=== PATIENT | female | born 1955 | race Caucasian/White ===

== ENCOUNTER → 2017-06-30 | Outpatient (CLI) | payer BC ==
[~2017-06-30] MED LIST: CEPH500C PO; DULO60CA6 PO; LEVOTHYROXINE; MECL-124 PO; PRD20T PO
--- NOTE | 2017-06-30 20:09 | Diagnostic Imaging Report ---
Digital mammogram bilateral screening with tomosynthesis. This study was compared to the prior exams of 06/26/2016, 08/28/2014, and 02/17/2012. At this time, there are no current complaints. The current study was also evaluated with a Computer Aided Detection (CAD) system. The fibroglandular tissue in both breasts is heterogeneously dense. This does limit the sensitivity of this exam. When compared to the prior study, there does not appear to have been any significant change. There is no primary or secondary sign of malignancy noted. The 3D tomographic views also fail to show any sign of malignancy. IMPRESSION: There is no evidence of malignancy. ACR BI-RADS Category 1: Negative. Result letter will be mailed to the patient. Note: At least 10% of breast cancer is not imaged by mammography. Dictated by: Dictated on workstation # [id number]
== END ==
LOC: RAD 09:07
PROVIDERS: ATTEND Nurse Practitioner Family
DX: Z12.31 Encounter for screening mammogram for malignant neoplasm of breast (principal)
CPT/HCPCS: 77067

== ENCOUNTER → 2017-08-31 | Outpatient (CLI) | payer BC ==
--- NOTE | 2017-08-31 11:05 | Diagnostic Imaging Report ---
EXAMINATION: Three views of the lumbar spine. INDICATION: Back pain. FINDINGS: There is straightening of the lordotic curvature of the lumbar spine. There is right convexity scoliotic curvature noted, however. The vertebral body heights are preserved. The disc heights are also preserved. No significant osteophyte formation. The paraspinal soft tissues appear unremarkable. Mild sclerotic degenerative changes at the SI joints are seen. IMPRESSION: Right convexity scoliosis. Straightening of the lordotic curvature may relate to muscle spasm. Dictated by: Dictated on workstation # [id number]
== END ==
LOC: RAD 10:28
DX: M41.26 Other idiopathic scoliosis, lumbar region (principal)
CPT/HCPCS: 72100

== ENCOUNTER 2017-10-13 08:34 | Emergency (ER) | payer BC ==
[~2017-10-13] VITALS: Ht 157.5 cm; Wt 59.0 kg
--- OUTSIDE RECORDS SUMMARY | 2017-10-13 08:41 | XMS REPORT | Continuity of Care Document ---
Demographics Preferred Language Unknown Marital Status Unknown Roman Catholic Affiliation Unknown Race Unknown Ethnic Group Unknown Author Author [facility] Address Unknown Phone Unavailable Allergies Active Description Code Type Severity Reaction Onset Reported/Identified Relationship to Patient Clinical Status Yes No Known Drug Allergies [id number] Drug Allergy Unknown N/ A 08/09/2012 Medications Problems Date Dx Coded Attending Type Code Diagnosis Diagnosed By 08/09/2012 Ot V16.0 FAMILY HX-GI MALIGNANCY 08/09/2012 Ot V58.69 OTH MED,LT,CURRENT USE 08/09/2012 Ot V76.51 SCREEN MAL NEOP-COLON 04/21/2013 V03.1 TYPHOID VACCINE DX 11/15/2014 RELL CATALAN Ot 599.0 URIN TRACT INFECTION NOS 11/15/2014 RELL CATALAN Ot 780.4 DIZZINESS AND GIDDINESS 01/02/2016 Ot 611.72 01/02/2016 Ot 733.90 01/02/2016 Ot V76.12 01/02/2016 Ot 611.72 01/02/2016 Ot 793.89 01/02/2016 Ot V76.12 01/02/2016 Ot V72.84 01/02/2016 L[address] CALVO BENDER MACHINE Ot V76.12 01/02/2016 Ot 780.4 02/09/2016 MARTINE SWEET, DWAYNE Carbajal Ot H11.31 CONJUNCTIVAL HEMORRHAGE, RIGHT EYE 02/09/2016 MARTINE SWEET, DWAYNE Carbajal Ot I45.10 UNSPECIFIED RIGHT BUNDLE-BRANCH BLOCK 02/09/2016 DWAYNE FARLEY MD Ot M47.892 OTHER SPONDYLOSIS, CERVICAL REGION 02/09/2016 DWAYNE FARLEY MD Ot R55 SYNCOPE AND COLLAPSE 02/09/2016 DWAYNE FARLEY MD Ot S00.83XA CONTUSION OF OTHER PART OF HEAD, INITIAL 02/09/2016 DWAYNE FARLEY MD Ot W18.11XA FALL FROM OR OFF TOILET W/O STRIKE AGAIN 02/09/2016 BRUEGGEMANN MD, DWAYNE T Ot Y92.012 BATHROOM OF SINGLE-FAMILY (PRIVATE ) HOUS 02/09/2016 MARTINE SWEET, DWAYNE T Ot Y99.8 OTHER EXTERNAL CAUSE STATUS 02/11/2016 MARTINE SWEET, DWAYNE T Ot H11.31 02/11/2016 MARTINE SWEET, DWAYNE T Ot I45.10 02/11/2016 MARTINE SWEET, DWAYNE T Ot M47.892 02/11/2016 MARTINE SWEET, DWAYNE T Ot R55 02/11/2016 MARTINE SWEET, DWAYNE T Ot S00.83XA 02/11/2016 MARTINE SWEET, DWAYNE T Ot W18.11XA 02/11/2016 MARTINE SWEET, DWAYNE T Ot Y92.012 02/11/2016 AMRTINE SWEET, DWAYNE T Ot Y99.8 02/12/2016 MARTINE SWEET, DWAYNE T Ot H11.31 02/12/2016 MARTINE SWEET, DWAYNE T Ot I45.10 02/12/2016 MARTINE SWEET, DWAYNE T Ot M47.892 02/12/2016 MARTINE SWEET, DWAYNE T Ot R55 02/12/2016 MARTINE SWEET, DWAYNE T Ot S00.83XA 02/12/2016 MARTINE SWEET, DWAYNE T Ot W18.11XA 02/12/2016 MARTINE SWEET, DWAYNE T Ot Y92.012 02/12/2016 MARTINE SWEET, DWAYNE T Ot Y99.8 06/27/2016 LARISA ARREDONDO DO Ot Z12.31 ENCNTR SCREEN MAMMOGRAM FOR MALIGNANT NE 07/11/2016 LARISA ARREDONDO DO S Ot Z12.31 ENCNTR SCREEN MAMMOGRAM FOR MALIGNANT NE 12/24/2016 Ot V76.12 OTH SCREEN MAMMO-MALIGN NEOPLASM OF ARIN 12/24/2016 Ot V72.84 EXAM PRE-OPERATIVE NOS 12/24/2016 LANE CALVO Ot V76.12 OTH SCREEN MAMMO-MALIGN NEOPLASM OF ARIN 12/24/2016 Ot 780.4 DIZZINESS AND GIDDINESS 12/24/2016 LARISA ARREDONDO DO Ot Z12.31 ENCNTR SCREEN MAMMOGRAM FOR MALIGNANT NE 02/27/2017 Ot V76.12 OTH SCREEN MAMMO-MALIGN NEOPLASM OF ARIN 02/27/2017 Ot V72.84 EXAM PRE-OPERATIVE NOS 02/27/2017 L[address] CALVO Ot V76.12 OTH SCREEN MAMMO-MALIGN NEOPLASM OF ARIN 02/27/2017 Ot 780.4 DIZZINESS AND GIDDINESS 02/27/2017 LARISA ARREDONDO DO S Ot Z12.31 ENCNTR SCREEN MAMMOGRAM FOR MALIGNANT NE 05/29/2017 Ot V76.12 OTH SCREEN MAMMO-MALIGN NEOPLASM OF ARIN 05/29/2017 Ot V72.84 EXAM PRE-OPERATIVE NOS 05/29/[address] CALVO BENDER MACHINE Ot V76.12 OTH SCREEN MAMMO-MALIGN NEOPLASM OF ARIN 05/29/2017 Ot 780.4 DIZZINESS AND GIDDINESS 05/29/2017 LARISA ARREDONDO DO S Ot Z12.31 ENCNTR SCREEN MAMMOGRAM FOR MALIGNANT NE 07/13/2017 STELLA ROBLERO Ot Z12.31 ENCNTR SCREEN MAMMOGRAM FOR MALIGNANT NE 09/01/2017 URMILA MARTINI APRN Ot M41.26 OTHER IDIOPATHIC SCOLIOSIS, LUMBAR REGIO 09/02/2017 VINIURMILA HICKS APRN Ot M41.26 OTHER IDIOPATHIC SCOLIOSIS, LUMBAR REGIO 09/07/2017 URMILA MARTINI APRN Ot M41.26 OTHER IDIOPATHIC SCOLIOSIS, LUMBAR REGIO 10/12/2017 URMILA MARTINI APRN Ot M41.26 OTHER IDIOPATHIC SCOLIOSIS, LUMBAR REGIO Procedures Results Encounters ACCT No. Visit Date/Time Discharge Status Pt. Type Provider Facility Loc./Unit Complaint [id number] 04/21/2013 11:14:00 Document Registration [id number] 08/31/2017 10:28:00 2016 23:59:59 [facility] Outpatient URMILA MARTINI APRN Via [facility] RAD SEVER BACK PAIN [id number] 06/30/2017 09:07:00 2016 23:59:59 [facility] Outpatient STELLA ROBLEROP [facility] RAD HEALTH MAIN [id number] 06/26/2016 12:57:00 2015 23:59:59 [facility] Outpatient LARISA ARREDONDO DO [facility] RAD SCREENING [id number] 02/09/2016 09:16:00 2015 11:39:00 DIS Emergency DWAYNE FARLEY MD [facility] ER SYNCOPE/DIZZINESS [id number] 11/15/2014 14:33:00 2013 19:16:00 DIS Emergency RELL CATALAN Via [facility] ER DIZZINESS/FLU SYMPTOMS [id number] 08/28/2014 15:20:00 2013 23:59:[address] [facility] BENDER MACHINE [facility] RAD SCREENING [id number] 01/08/2015 15:25:00 Document Registration [id number] 08/09/2012 08:55:00 Document Registration [id number] 08/06/2012 08:13:00 Document Registration [id number] 02/17/2012 07:31:00 Document Registration [id number] 05/28/2011 09:37:00 Document Registration [id number] 02/18/2011 14:47:00 Document Registration [id number] 02/06/2011 11:14:00 Document Registration
--- OUTSIDE RECORDS SUMMARY | 2017-10-13 08:41 | XMS REPORT ---
Author Author JERSEY GASPAR Organization [employer] Address Unknown Phone Unavailable Care Team Providers Care Zipper Joiner Name Role Phone JERSEY GASPAR CP Unavailable Allergies No Known Allergies Problems Problem Type Condition Code Onset Dates Condition Status Assessment Encounter for immunization Z23 Active Problem TYPHOID VACCINE DX V03.1 Active Medications No Known Medications Procedures Procedure Coding System Code Date SINGLE IMMUNIZATION ADMIN CPT-4 51204 Sep 03, 2015 TDAP (BOOSTRIX) CPT-4 88922 Sep 03, 2015 Results No Known Results Immunizations Vaccine Administration Date TDAP (BOOSTRIX) Sep 03, 2015 Summary Purpose [employer] Submission
[2017-10-13] MEDS ORDERED: ASPIRIN 81 MG CHEW (CHILDREN'S ASA) PO ONE (09:15)
[2017-10-13 09:29] LABS: BASOPHILS % (AUTO) 1 % (0-10); EOSINOPHILS % (AUTO) 1 % (0-10); LYMPHOCYTES # (AUTO) 1.5 X 10^3 (1.0-4.0); LYMPHOCYTES % (AUTO) 30 % (12-44); MEAN CORPUSCULAR HEMOGLOBIN 32 PG (25-34); MEAN CORPUSCULAR HGB CONC 35 G/DL (32-36); MEAN CORPUSCULAR VOLUME 91 FL (80-99); MEAN PLATELET VOLUME 9.4 FL (7.4-10.4); MONOCYTES # (AUTO) 0.3 X 10^3 (0.0-1.0); MONOCYTES % (AUTO) 6 % (0-12); NEUTROPHILS % (AUTO) 62 % (42-75); PLATELET COUNT 185 10^3/uL (130-400); RED BLOOD COUNT 4.41 10^6/uL (4.35-5.85); RED CELL DISTRIBUTION WIDTH 12.3 % (10.0-14.5); WHITE BLOOD COUNT 4.9 10^3/uL (4.3-11.0)
[2017-10-13] MEDS ORDERED: LEVO75TA6 PO (09:37)
[2017-10-13 09:42] LABS: INR 0.9 (0.8-1.4); PROTHROMBIN TIME PATIENT 12.1 SEC (12.2-14.7)
[2017-10-13 09:54] LABS: ALANINE AMINOTRANSFERASE 30 U/L (0-55); ALBUMIN 4.2 GM/DL (3.2-4.5); ANION GAP 8 MMOL/L (5-14); ASPARTATE AMINO TRANSFERASE 29 U/L (5-34); BILIRUBIN,TOTAL 0.5 MG/DL (0.1-1.0); BLOOD UREA NITROGEN 8 MG/DL (7-18); BUN/CREATININE RATIO 11; CALCIUM 9.3 MG/DL (8.5-10.1); CARBON DIOXIDE 28 MMOL/L (21-32); CHLORIDE 105 MMOL/L (98-107); CREATININE SERUM 0.71 MG/DL (0.60-1.30); GFR ESTIMATED > 60; GLUCOSE 115 MG/DL (70-105); MAGNESIUM 2.3 MG/DL (1.8-2.4); POTASSIUM 3.8 MMOL/L (3.6-5.0); SODIUM 141 MMOL/L (135-145); TOTAL PROTEIN 7.3 GM/DL (6.4-8.2)
--- NOTE | 2017-10-13 10:20 | Diagnostic Imaging Report ---
INDICATION: Arm numbness and sweating. FINDINGS: The lungs are clear. The heart and vessels are normal. There is no effusion or pneumothorax. IMPRESSION: No acute appearing abnormality. Dictated by: Dictated on workstation # [id number]
[2017-10-13 10:42] LABS: MYOGLOBIN SERUM 29.8 NG/ML (10.0-92.0)
--- NOTE | 2017-10-13 10:58 | ED Chest Pain ---
General Chief Complaint: Chest Pain Stated Complaint: HAD CHEST PAIN Nursing Triage Note: Pt had 10 minutes of CP, diaphoresis, and nausea at 2300 yesterday. Feels improved now. Denies chest pain. Monitor shows SR without ectopy. Nursing Sepsis Screen: No Definite Risk Source: patient Exam Limitations: no limitations History of Present Illness Time seen by provider: 08:58 Initial Comments This 62-year-old woman presents to the emergency room via private vehicle with complaints of a chest pain that woke her at 23:30 last night and lasted for about 10-15 minutes. She had associated nausea, diaphoresis, and left arm tingling. The pain was central sternal and was characterized as heaviness and aching. The pain has not returned. She took aspirin 162 mg at home. She has no history of heart problems. There is no family history of heart disease. She denies any tobacco use. She is feeling well at present. Allergies and Home Medications Allergies Coded Allergies: No Known Drug Allergies (Unverified , 08/09/12) Home Medications Duloxetine Hcl 60 Mg Capsule.dr, 1 CAP PO DAILY, (Reported) Levothyroxine Sodium 75 Mcg Tablet, 75 MCG PO DAILY, (Reported) Review of Systems Constitutional: see HPI EENTM: No Symptoms Reported Respiratory: No Symptoms Reported Cardiovascular: See HPI Gastrointestinal: See HPI Genitourinary: No Symptoms Reported Musculoskeletal: no symptoms reported Skin: no symptoms reported Psychiatric/Neurological: No Symptoms Reported Endocrine: No Symptoms Reported Hematologic/Lymphatic: No Symptoms Reported Past Jgxfyjv-Pysfnz-Eeeemh Hx Patient Social History Alcohol Use: Denies Use Recreational Drug Use: No Smoking Status: Never a Smoker Recent Foreign Travel: No Contact w/Someone Who Travel: No Recent Infectious Disease Expo: No Surgeries History of Surgeries: Yes (left shoulder) Surgeries: Orthopedic Respiratory History of Respiratory Disorde: No Cardiovascular History of Cardiac Disorders: No Neurological History of Neurological Disord: No Reproductive System : No Hx Reproductive Disorders: No Genitourinary History of Genitourinary Disor: No Gastrointestinal History of Gastrointestinal Di: No Musculoskeletal History of Musculoskeletal Dis: Yes Musculoskeletal Disorders: Chronic Back Pain Endocrine History of Endocrine Disorders: Yes Endocrine Disorders: Hypothyroidsim Cancer History of Cancer: No Psychosocial History of Psychiatric Problem: Yes Behavioral Health Disorders: Anxiety Integumentary History of Skin or Integumenta: No Blood Transfusions History of Blood Disorders: No Family Medical History Significant Family History: Heart Disease (Cardiac arrhythmia in her father) Physical Exam Vital Signs Vital Sign - Last 12Hours 10/13/17 09:32 Temp 98.1 Pulse 62 Resp 16 B/P (MAP) 125/59 Pulse Ox 98 O2 Delivery Room Air Capillary Refill : Less Than 3 Seconds General Appearance: No Apparent Distress, WD/WN HEENT: PERRL/EOMI, Normal ENT Inspection Neck: Normal Inspection Respiratory: Chest Non Tender, Lungs Clear, Normal Breath Sounds, No Accessory Muscle Use, No Respiratory Distress Cardiovascular: Regular Rate, Rhythm, No Edema, Normal Peripheral Pulses Gastrointestinal: Normal Bowel Sounds, Non Tender, Soft Extremity: Normal Inspection, Non Tender, No Pedal Edema Neurologic/Psychiatric: Alert, Oriented x3, No Motor/Sensory Deficits, Normal Mood/Affect, layout technician II-XII Norm as Tested Skin: Normal Color, Warm/Dry Progress/Results/Core Measures Results/Orders Lab Results Laboratory Tests Test 10/13/17 09:20 Range/Units White Blood Count 4.9 4.3-11.0 10^3/uL Red Blood Count 4.41 4.35-5.85 10^6/uL Hemoglobin 13.9 11.5-16.0 G/DL Hematocrit 40 35-52 % Mean Corpuscular Volume 91 80-99 FL Mean Corpuscular Hemoglobin 32 25-34 PG Mean Corpuscular Hemoglobin Concent 35 32-36 G/DL Red Cell Distribution Width 12.3 10.0-14.5 % Platelet Count 185 130-400 10^3/uL Mean Platelet Volume 9.4 7.4-10.4 FL Neutrophils (%) (Auto) 62 42-75 % Lymphocytes (%) (Auto) 30 12-44 % Monocytes (%) (Auto) 6 0-12 % Eosinophils (%) (Auto) 1 0-10 % Basophils (%) (Auto) 1 0-10 % Neutrophils # (Auto) 3.0 1.8-7.8 X 10^3 Lymphocytes # (Auto) 1.5 1.0-4.0 X 10^3 Monocytes # (Auto) 0.3 0.0-1.0 X 10^3 Eosinophils # (Auto) 0.0 0.0-0.3 10^3/uL Basophils # (Auto) 0.0 0.0-0.1 10^3/uL Prothrombin Time 12.1 L 12.2-14.7 SEC INR Comment 0.9 0.8-1.4 Activated Partial Thromboplast Time 26 24-35 SEC Sodium Level 141 135-145 MMOL/L Potassium Level 3.8 3.6-5.0 MMOL/L Chloride Level 105 98-107 MMOL/L Carbon Dioxide Level 28 21-32 MMOL/L Anion Gap 8 5-14 MMOL/L Blood Urea Nitrogen 8 7-18 MG/DL Creatinine 0.71 0.60-1.30 MG/DL Estimat Glomerular Filtration Rate > 60 BUN/Creatinine Ratio 11 Glucose Level 115 H 70-105 MG/DL Calcium Level 9.3 8.5-10.1 MG/DL Magnesium Level 2.3 1.8-2.4 MG/DL Total Bilirubin 0.5 0.1-1.0 MG/DL Aspartate Amino Transf (AST/SGOT) 29 5-34 U/L Alanine Aminotransferase (ALT/SGPT) 30 0-55 U/L Alkaline Phosphatase 70 40-136 U/L Myoglobin 29.8 10.0-92.0 NG/ML Troponin I < 0.30 <0.30 NG/ML Total Protein 7.3 6.4-8.2 GM/DL Albumin 4.2 3.2-4.5 GM/DL My Orders Orders - DWAYNE FARLEY MD Continuous Ekg Monitoring (10/13/17 08:53) Ekg Tracing (10/13/17 08:53) Cbc With Automated Diff (10/13/17 09:07) Magnesium (10/13/17 09:07) Chest 1 View, Ap/Pa Only (10/13/17 09:07) Cardiac Profile 1 (10/13/17 09:07) Comprehensive Metabolic Panel (10/13/17 09:07) Myoglobin Serum (10/13/17 09:07) Protime With Inr (10/13/17 09:07) Partial Thromboplastin Time (10/13/17 09:07) O2 (10/13/17 09:07) Monitor-Rhythm Ecg Trace Only (10/13/17 09:07) Aspirin Chewable Tablet (Baby Aspirin Ch (10/13/17 09:15) Saline Lock/Iv-Start (10/13/17 09:07) Medications Given in ED Vital Signs/I&O Vital Sign - Last 12Hours 10/13/17 10/13/17 10/13/17 09:32 09:51 11:15 Temp 98.1 98.1 98.1 Pulse 62 64 Resp 16 16 B/P (MAP) 125/59 Pulse Ox 98 98 O2 Delivery Room Air Blood Pressure Mean: 81 Progress Note : Progress Note Workup was unremarkable. Patient had no further symptoms. Return precautions discussed and follow up with her primary care provider was encouraged. I advised use of aspirin 81 mg daily until seen by her doctor. ECG Initial ECG Impression Date: Oct 13, 2017 Initial ECG Impression Time: 08:56 Initial ECG Rate: 65 Initial ECG Rhythm: Normal Sinus Initial ECG Intervals: Normal Initial ECG Impression: Normal Comment Normal sinus rhythm with no ST elevation or depression. Possible left anterior fascicular block. No axis deviation. Diagnostic Imaging Diagonstic Imaging: Xray Plain Films/CT/US/NM/MRI: chest Comments Chest x-ray viewed by me and report reviewed. See report below: NAME: JESSIE OCHOA MED REC#: [id number] PT STATUS: REG ER : 1955 PHYSICIAN: DWAYNE FARLEY MD ADMIT DATE: 10/13/17/ER Draft Date of Exam:10/13/17 CHEST 1 VIEW, AP/PA ONLY INDICATION: Arm numbness and sweating. FINDINGS: The lungs are clear. The heart and vessels are normal. There is no effusion or pneumothorax. IMPRESSION: No acute appearing abnormality. Dictated on workstation # [id number] Dict: 10/13/17 1008 Trans: 10/13/17 1020 [id number] Interpreted by: KAYLA CARR Departure Impression Impression: Primary Impression: Chest pain Qualified Codes: R07.9 - Chest pain, unspecified Disposition: 01 HOME, SELF-CARE Condition: Improved Departure-Patient Inst. Decision time for Depature: 11:02 Referrals: LARISA ARREDONDO DO (PCP/Family) Primary Care Physician Patient Instructions: Chest Pain (DC) Add. Discharge Instructions: Your workup in the emergency room was unremarkable. However, coronary artery disease cannot necessarily be ruled out in the emergency room, and further testing such as stress test may be required. Follow-up with your primary care provider as soon as possible to discuss further. In the meantime, take aspirin 81 mg daily. Return to the emergency room promptly if symptoms return. All discharge instructions reviewed with patient and/or family. Voiced understanding. Copy Copies To 1: LARISA ARREDONDO JOSHUA T MD Oct 13, 2017 10:58
[2017-10-13 11:15] VITALS: BP 122/60
== END 2017-10-13 11:15 | disposition home or self-care (01) ==
LOC: EDUNIT# 08:34 → ER 08:37
DX: R07.9 Chest pain, unspecified (principal); F41.9 Anxiety disorder, unspecified; E03.9 Hypothyroidism, unspecified; Z79.82 Long term (current) use of aspirin; Z82.49 Family history of ischemic heart disease and other diseases of the circulatory system
CPT/HCPCS: 36415; 71010; 80053; 83735; 83874; 84484; 85025; 85610; 85730; 93005; 93041

== ENCOUNTER → 2018-11-23 | Outpatient (CLI) | payer BC ==
[~2018-11-23] MED LIST changes: +LEVO75TA6 PO
== END ==
LOC: CARD 16:59
PROVIDERS: ATTEND Nurse Practitioner Family
DX: R07.9 Chest pain, unspecified (principal)

== ENCOUNTER → 2018-11-30 | Outpatient (CLI) | payer BC | LOC: CARD 09:13 | PROVIDERS: ATTEND Family Medicine | DX: R07.9 Chest pain, unspecified (principal); I45.4 Nonspecific intraventricular block; I07.1 Rheumatic tricuspid insufficiency | CPT/HCPCS: 93306 ==

== ENCOUNTER → 2018-12-15 | Outpatient (CLI) | payer BC ==
[~2018-12-15] MED LIST changes: +CATHETER FLUSH 10 ML SYR IV PRN
[2018-12-15 13:00] VITALS: BP 138/55
[2018-12-15 13:03] VITALS: BP 164/77
--- NOTE | 2018-12-15 19:59 | STRESS TEST ---
DATE OF SERVICE: 12/15/2018 [facility] MYOVIEW STRESS TEST REPORT REFERRING PHYSICIAN: Dr. Davis Baseline heart rate is 52. Baseline blood pressure is 123/78. Baseline EKG is sinus rhythm with no ischemic changes. In summary, the patient was injected with 10.51 mCi of technetium-99 Myoview and the resting images were obtained. Then, the patient started exercising with a baseline heart rate, blood pressure and EKG mentioned above. The patient was able to exercise for a total of 8 minutes on standard Ozzy protocol. With peak exercise level, EKG was showing [address] depression in II, III, aVF, V4 and V5. Blood pressure was 159/66. During recovery, heart rate and blood pressure returned to baseline. EKG returned to baseline. The resting and stress images were reviewed and compared in the short axis, horizontal long axis, and vertical long axis views. Review of the images showed good radiotracer uptake with no significant ischemia or infarction. SSS is 1, SDS 1, TID value 1.03. On the gated images, the left ventricle appeared to be normal size with normal contractility. Calculated ejection fraction 79%. CONCLUSION: 1. Good exercise tolerance, a total of 8 minutes on standard Ozzy protocol, total of 9.7 METS achieving 95% of maximum expected heart rate. 2. Appropriate heart rate and blood pressure response to exercise returned to baseline during recovery. 3. Nondiagnostic EKG changes with exercise returned to baseline during recovery. 4. No ischemia or infarction on SPECT images. 5. Normal left ventricular size with normal contractility. Calculated ejection fraction 79%. Job ID: [id number] DocumentID: [id number] Dictated Date: 12/15/2018 16:29:21 Marketing Producer Date: 12/15/2018 19:58:54 Dictated By: CHERYLE ALEJANDRE MD
== END ==
LOC: CARD 11:17
PROVIDERS: ATTEND Internal Medicine Cardiovascular Disease
DX: R07.89 Other chest pain (principal); R94.31 Abnormal electrocardiogram [ECG] [EKG]; I45.10 Unspecified right bundle-branch block; I07.1 Rheumatic tricuspid insufficiency
CPT/HCPCS: 78452; 93017

== ENCOUNTER 2019-01-25 08:40 | Outpatient (CLI) | payer BC ==
[~2019-01-25] VITALS: Ht 157.5 cm; Wt 59.0 kg
[~2019-01-25 08:40] MED LIST changes: -CATHETER FLUSH 10 ML SYR IV PRN
[2019-01-25] MEDS ORDERED: DULO60CA58 PO (14:24)
== END 2019-01-25 14:27 | disposition home or self-care (01) ==
LOC: PREOP 08:40
PROVIDERS: ATTEND Surgery
DX: Z01.818 Encounter for other preprocedural examination (principal)

== ENCOUNTER 2019-01-28 11:22 | Day surgery (SDC) | payer BC ==
[~2019-01-28] VITALS: Ht 157.5 cm; Wt 59.0 kg
[~2019-01-28 11:22] MED LIST changes: +DULO60CA58 PO
[2019-01-28] MEDS ORDERED: NS IV 500 ML 500 ML IV PRN (11:27)
[2019-01-28 11:30] VITALS: BP 113/52
[2019-01-28] MEDS ORDERED: MIDAZOLAM 2 MG/2 ML (VERSED) VIAL IVP ONE (11:30)
[2019-01-28] MEDS ORDERED: LIDOCAINE JELLY 2% 6 ML SYRINGE MM PRN (11:30)
[2019-01-28] MEDS ORDERED: fentaNYL INJECTION 100 MCG/2 ML AMP IVP ONE (11:30)
[2019-01-28] MEDS ORDERED: NS IV 500 ML 500 ML ONE (11:32)
--- NOTE | 2019-01-28 11:45 | Conscious Sedation/ASA ---
Conscious Sedation Pre-Proced Time 10:30 ASA Score 2 For ASA 3 and 4: Consider anesthesia and medical clearance. Also, for patients with a history of failed moderate sedation consider anesthesia. Airway Lungs Heart ASA score ASA 1: a normal healthy patient ASA 2: a patient with a mild systemic disease (mid diabetes, controlled hypertension, obesity ASA 3: a patient with a severe systemic disease that limits activity (angina , COPD, prior Myocardial infarction) ASA 4: a patient with an incapacitating disease that is a constant threat to life (CHF, renal failure) ASA 5: a moribund patient not expected to survive 24 hrs. (ruptured aneurysm) ASA 6: a declared brain- patient whose organs are being harvested. For emergent operations, add the letter E after the classification Mallampati Classification Grade 2 Sedation Plan Analgesia, Amnesia, Plan communicated to team members, Discussed options with patient/fam, Discussed risks with patient/fam The patient is an appropriate candidate to undergo the planned procedure, sedation, and anesthesia. The patient immediately re-assessed prior to indication. THERON ECHEVARRIA MD Jan 28, 2019 11:45
--- NOTE | 2019-01-28 11:46 | Progress Note-Pre Operative ---
Pre-Operative Progress Note H&P Reviewed The H&P was reviewed, patient examined and no changes noted. Date Seen by Provider: Jan 28, 2019 Time Seen by Provider: 10:30 Date H&P Reviewed: Jan 28, 2019 Time H&P Reviewed: 10:30 Pre-Operative Diagnosis: screening/family hx colon ca THERON ECHEVARRIA MD Jan 28, 2019 11:46
--- NOTE | 2019-01-28 11:49 | Discharge Inst-Surgical ---
D/C Lap Instructions-SWATHI Follow Up 5 years Activity as tolerated High Fiber Diet 25g or more per day Avoid Alcohol, Caffeine, Spicy [place] and Acid foods. Drink 64 fluid oz or more of fluids per day. Symptoms to Report: Fever over 101 degree F, Nausea/Vomiting If any problems/questions: Contact your physician or go to Emergency Room THERON ECHEVARRIA MD Jan 28, 2019 11:49
[2019-01-28] MEDS ORDERED: morphine INJ 10 MG/ML 1ML (SYR OR VIAL) IV PRN (12:00)
[2019-01-28] MEDS ORDERED: ONDANSETRON 4 MG/2 ML (SDV) Z0FRAN IV PRN (12:00)
[2019-01-28] MEDS ORDERED: HYDROcodone/APAP 5 MG/325 MG (LORTAB) TAB PO PRN (12:00)
[2019-01-28] MEDS ORDERED: ACETAMINOPHEN 325 MG TABLET PO PRN (12:00)
[2019-01-28 12:50] VITALS: BP 112/58
[2019-01-28 13:35] VITALS: BP 112/58
--- NOTE | 2019-01-28 20:32 | OPERATIVE REPORT ---
DATE OF SERVICE: 01/28/2019 ATTENDING PRIMARY CARE PHYSICIAN: Lorrie Davis DO PREOPERATIVE DIAGNOSIS: Screening with family history of colon cancer. POSTOPERATIVE DIAGNOSIS: Normal colon and rectum. PROCEDURE: Colonoscopy. SURGEON: Theron Echevarria MD ANESTHESIA: Conscious sedation. ESTIMATED BLOOD LOSS: Minimal. FINDINGS: No significant hemorrhoids identified. The remainder of the rectum and colon were normal. There were no polyps or any neoplasms identified. DISPOSITION: The patient tolerated the procedure well. INDICATIONS: The patient is a 63-year-old female in need of a screening colonoscopy. Her last colonoscopy was in 2011 and reports that this was normal. She is doing well otherwise and does not report any major issues with diarrhea nor constipation as well as no red blood per rectum nor any dark tarry stools. She does report a family history of colon cancer with her father being diagnosed with the disease at age 78. DESCRIPTION OF PROCEDURE: The patient was brought to the endoscopy suite, laid in left lateral decubitus position. After adequate IV pain and sedative medications and conscious sedation anesthesia, a digital rectal examination was performed. No significant hemorrhoids identified. Normal sphincter tone was felt and there were no palpable masses. The endoscope was then intubated into the anus and rectum gently insufflated. The endoscope was then advanced to the valves of Hughes of the rectum with no polyps or any neoplasms identified. We then proceeded through the sigmoid colon where no diverticulosis identified. The endoscope was then advanced to the remainder of the descending, transverse and ascending colon to the cecum. There were no polyps or any neoplasms identified throughout the colon or rectum. The endoscope was then slowly withdrawn while taking a second look and suctioning of residual air with no additional findings. The patient tolerated the procedure well. We will recommend continued medical management with high fiber diet with at least 25 grams of fiber per day as well as significant amounts of water on a daily basis to promote soft stools on a daily basis as well. She does not need another colonoscopy for another 5 years. Job ID: [id number] DocumentID: [id number] Dictated Date: 01/28/2019 12:25:14 Paper Goods Machine Set Up Operator Date: 01/28/2019 20:31:45 Dictated By: THERON ECHEVARRIA MD
== END 2019-01-28 13:35 | disposition home or self-care (01) ==
LOC: ENDO 11:22
PROVIDERS: ATTEND Surgery
DX: Z12.11 Encounter for screening for malignant neoplasm of colon (principal); Z80.0 Family history of malignant neoplasm of digestive organs; E03.9 Hypothyroidism, unspecified; F41.9 Anxiety disorder, unspecified; Z79.899 Other long term (current) drug therapy

== ENCOUNTER → 2019-11-04 | Outpatient (CLI) | payer BC ==
[~2019-11-04] MED LIST changes: -DULO60CA58 PO; +DULO60CA59 PO
--- NOTE | 2019-11-07 09:18 | Diagnostic Imaging Report ---
INDICATION: Routine screening. COMPARISON: Comparison is made with prior mammograms from 06/30/2017 and 10/05/2016. 2-D and 3-D bilateral screening mammography was performed. The current study was also evaluated with a Computer Aided Detection (CAD) system. 3-D tomosynthesis was also performed and reviewed. FINDINGS: Scattered fibroglandular densities are identified bilaterally. Benign calcifications are identified bilaterally. Slightly nodular density in the retroareolar left breast is stable. No spiculated mass or malignant-appearing microcalcifications are seen. Axillae are unremarkable. IMPRESSION: No mammographic features suspicious for malignancy are identified. ACR BI-RADS Category 2: Benign findings. Result letter will be mailed to the patient. Note: At least 10% of breast cancer is not imaged by mammography. Dictated by: Dictated on workstation # [id number]
== END ==
LOC: RAD 14:15
PROVIDERS: ATTEND Family Medicine
DX: Z12.31 Encounter for screening mammogram for malignant neoplasm of breast (principal)
CPT/HCPCS: 77067

== ENCOUNTER 2021-11-07 11:10 | Outpatient (CLI) | payer MEDICARE, OTHER ==
[~2021-11-07] VITALS: Ht 157.5 cm; Wt 57.6 kg
[2021-11-07] MEDS ORDERED: EPINEPHrine INJECTION 1 MG/ML AMP IM PRN (11:30)
[2021-11-07] MEDS ORDERED: ONDANSETRON 4 MG/2 ML (SDV) Z0FRAN IV PRN (11:30)
[2021-11-07] MEDS ORDERED: diphenhydrAMINE 50 MG/ML INJ (BENADRYL) IV PRN (11:30)
[2021-11-07] MEDS ORDERED: ACETAMINOPHEN 500 MG TAB (TYLENOL) PO PRN (11:30)
[2021-11-07] MEDS ORDERED: BAMLANIVIMAB 700 MG/ETESEVIMAB 1,400 MG IN NS IV ONE ×3 (11:30)
[2021-11-07 11:38] VITALS: BP 112/68
[2021-11-07 12:25] VITALS: BP 98/51
== END 2021-11-07 12:30 | disposition home or self-care (01) ==
LOC: INFUSION 11:10
PROVIDERS: ATTEND Nurse Practitioner Family
DX: U07.1 COVID-19 (principal)

== ENCOUNTER → 2021-11-27 | Outpatient (CLI) | payer MEDICARE, OTHER ==
--- NOTE | 2021-11-27 12:04 | Diagnostic Imaging Report ---
INDICATION: Routine screening. Comparison is made with prior mammogram 11/04/2019 and 06/30/2017. 2-D and 3-D bilateral screening mammography was performed with CAD. Both breasts are heterogeneously dense, limiting the sensitivity of mammography. No dominant mass or malignant-appearing microcalcifications are seen. Nodular density retroareolar left breast is less prominent on today's study. Axillae are unremarkable. IMPRESSION: No mammographic features suspicious for malignancy are identified. BI-RADS Category 2 ACR BI-RADS Category 2: Benign findings. Result letter will be mailed to the patient. Note: At least 10% of breast cancer is not imaged by mammography. Dictated by: Dictated on workstation # [id number]
== END ==
LOC: RAD 11:15
PROVIDERS: ATTEND Family Medicine
DX: Z12.31 Encounter for screening mammogram for malignant neoplasm of breast (principal)
CPT/HCPCS: 77063; 77067

== ENCOUNTER → 2022-11-28 | Outpatient (CLI) | payer MEDICARE, OTHER ==
--- NOTE | 2022-11-28 12:28 | Diagnostic Imaging Report ---
Indication: Routine screening. Comparison is made with prior mammograms from 11/27/2021 and 11/04/2019. 2-D and 3-D bilateral screening mammography was performed with CAD. Both breasts are heterogeneously dense, limiting the sensitivity of mammography. The parenchymal pattern is stable. No mass or malignant-appearing microcalcifications are seen. Axillae are unremarkable. IMPRESSION: BI-RADS Category 1 No mammographic features suspicious for malignancy are identified. ACR BI-RADS Category 1: Negative. Result letter will be mailed to the patient. Note: At least 10% of breast cancer is not imaged by mammography. Dictated by: Dictated on workstation # [id number]
== END ==
LOC: RAD 10:05
PROVIDERS: ATTEND Family Medicine
DX: Z12.31 Encounter for screening mammogram for malignant neoplasm of breast (principal)
CPT/HCPCS: 77063; 77067